=== PATIENT | male | born 1955 | race Caucasian/White ===

== ENCOUNTER 2018-10-13 12:58 | Observation (INO) ==
[2018-10-13] MEDS ORDERED: Sod Chloride 0.9% Inj 1,000 ML IV.CONT SCH (15:30)
--- NOTE | 2018-10-13 15:39 | ED ---
HPI General Chief Complaint: Syncope Stated Complaint: Dizziness/Nausea/Headache Time Seen by Provider: 10/13/18 15:11 Source: patient and family Mode of arrival: ambulatory Limitations: no limitations History of Present Illness HPI narrative: 3-year-old male complains of headache, nausea near syncope. Patient states that he had nausea and headache 4 days ago and had a syncopal episode at that time. Patient states that he passed out for a few seconds. The event was witnessed by his . Patient states that he has intermittent headaches since then. Patient states that headache is throbbing headache but spiritism area associate with nausea. Patient denies any visual change. Patient denies any photophobia. Patient denies any neck pain. Patient states that headache is worse since this afternoon and he almost passed out twice today. Patient denies any chest pain or shortness of breath. Patient denies abdominal pain. Patient denies any focal weakness or numbness of the extremity. Patient states that when he passed out 4 days ago he fell back and hit the back of the head. Patient did not see any physician after the fall. Patient has history of DVT and PE and atrial fibrillation. Patient is on Coumadin. Patient also on metoprolol. Patient states that he had ablation procedure in the past and it was in sinus rhythm subsequently. Patient states that he was seen by Dr. Vyas, his vessel ordinary seaman a few months ago and he was in sinus rhythm at that time. Patient denies any alcohol or drug abuse. Patient has history hypertension. 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 Patient awaiting surgery at [facility]. Patient also has history of neuropathy and right foot drop. complaint: Reports felt faint and almost passed out Onset (ago): hour(s) Prodromal symptoms: Reports headache and nausea/vomiting Witnessed: yes - by other (By his ) Context: Reports at rest Injuries sustained associated with event: Reports none Current symptoms: Reports headache and nausea Treatments prior to arrival: Reports none Related Data Home Medications Medication Instructions Recorded Confirmed metoprolol succinate 10/13/18 warfarin 10/13/18 Allergies Allergy/AdvReac Type Severity Reaction Status Date / Time No Known Allergies Allergy Uncoded 05/17/14 21:54 Review of Systems ROS: all other systems reviewed are negative [facility] Medical History Medical History A-fib (Acute) DVT (deep venous thrombosis) (Acute) Foot drop, left (Acute) HTN (hypertension) (Acute) Hernia of abdominal wall (Acute) Neuropathy (Acute) Pulmonary embolism (Acute) Sepsis (Acute) Surgical History Surgical History History of colectomy (Acute) History of reversal of ileostomy (Acute) Social History Social History Substance History: No History of Abuse Smoking Status: Never smoker How Often Do You Have a Drink Containing Alcohol: 2 to 4 times a month Recent Travel in [facility] within the Last 8 Weeks: No Recent Out of Country Travel within the Last 8 Weeks: No Immunization History Tetanus Immunization: <5 Years Exam Narrative Exam Narrative: GENERAL: Well-nourished, well-developed patient. SKIN: Focused skin assessment warm/dry. HEAD: Normocephalic. Right TM is clear. Left TM with history of left TM perforation. No discharge. No active bleeding. EYES: No scleral icterus. No injection or drainage. Pupils 1 mm equal reactive. NECK: Supple, trachea midline. No JVD or lymphadenopathy. No meningismus CARDIOVASCULAR: Regular rate and rhythm without murmurs, gallops, or rubs. RESPIRATORY: Breath sounds equal bilaterally. No accessory muscle use. GASTROINTESTINAL: Abdomen soft, non-tender, nondistended. MUSCULOSKELETAL: No cyanosis, or edema. BACK: Nontender without obvious deformity. No CVA tenderness. Neurologic exam: Patient is awake and alert oriented x3. Patient moves all extremity well. No obvious focal neurologic deficit. Course Initial Documented Vital Signs Temperature 99.0 F 10/13/18 13:33 Pulse Rate 63 10/13/18 13:33 Respiratory Rate 16 10/13/18 13:33 Blood Pressure 147/81 H 10/13/18 13:33 Pulse Oximetry 98 10/13/18 13:33 Last Documented Vital Signs Temperature 99.0 F 10/13/18 13:33 Pulse Rate 94 H 10/13/18 15:18 Respiratory Rate 12 10/13/18 15:18 Blood Pressure 140/87 10/13/18 15:18 Pulse Oximetry 97 10/13/18 15:30 Medical Decision Making MDM Narrative Medical decision making narrative: 63-year-old male with headache, nausea, near syncope. Patient had recurrent headache and nausea and syncopal episode 4 days ago. Patient has history of atrial fibrillation and on Coumadin. Normal saline solution 125 cc an hour. Patient was recently in sinus rhythm now in atrial fibrillation. Medical Screen Exam Complete: Yes Emergency Medical Condition: Yes Differential Diagnosis Differential Diagnosis: Differential diagnosis including vasovagal reaction, cephalgia, migraine headache, tension headache, cluster headache, intracranial pathology, arrhythmia, electrolyte imbalance, dehydration, seizure. Lab Data Lab results reviewed: Yes I reviewed the patient's lab results. Result diagrams: 10/13/18 15:43 10/13/18 15:43 Lab Results 10/13/18 10/13/18 10/13/18 Range/Units 15:43 15:43 15:43 WBC 8.7 (4.0-11.0) th/mm3 RBC 5.31 (4.50-5.90) mil/mm3 Hgb 16.9 (13.0-17.0) gm/dL Hct 49.9 (39.0-51.0) % MCV 94.1 (80.0-100.0) fL MCH 31.9 (27.0-34.0) pg MCHC 33.9 (32.0-36.0) % RDW 14.5 (11.6-17.2) % Plt Count 235 (150-450) th/mm3 MPV 9.2 (7.0-11.0) fL Neut % (Auto) 60.1 (16.0-70.0) % Lymph % (Auto) 29.0 (9.0-44.0) % Lane % (Auto) 8.1 H (0.0-8.0) % Eos % (Auto) 1.7 (0.0-4.0) % Baso % (Auto) 1.1 (0.0-2.0) % Neut # (Auto) 5.2 (1.8-7.7) th/mm3 Lymph # (Auto) 2.5 (1.0-4.8) th/mm3 Lane # (Auto) 0.7 (0.0-0.9) th/mm3 Eos # (Auto) 0.1 (0.0-0.4) th/mm3 Baso # (Auto) 0.1 (0.0-0.2) th/mm3 WBC Differential . Differential Comment Auto diff final PT 19.4 H (9.8-11.6) sec INR 1.9 Ratio APTT 41.2 H (23.4-31.7) sec Sodium 139 (136-145) meq/L Potassium 3.8 (3.5-5.1) meq/L Chloride 103 (98-107) meq/L Carbon Dioxide 28.4 (21.0-32.0) meq/L Anion Gap 8 (5-15) meq/L BUN 18 (7-18) mg/dL Creatinine 1.01 (0.60-1.30) mg/dL Estimated GFR 75 L (>89) mL/min Random Glucose 109 H (74-106) mg/dL Calcium 9.1 (8.5-10.1) mg/dL Total Bilirubin 0.4 (0.2-1.0) mg/dL AST 29 (15-37) U/L ALT 49 (12-78) U/L Alkaline Phosphatase 77 (45-117) U/L Troponin I Less than 0.02 L (0.02-0.05) ng/mL Total Protein 8.2 (6.4-8.2) g/dL Albumin 4.0 (3.4-5.0) g/dL Urine Color (Yellw/Straw) Urine Clarity (Clear) Urine pH (5.0-8.5) Ur Specific [place] (1.002-1.035) Urine Protein (Neg-Trace) mg/dL Urine Glucose (UA) (Negative) mg/dL Urine Ketones (Negative) mg/dL Urine Occult Blood (Negative) Urine Nitrate (Negative) Urine Bilirubin (Negative) Urine Urobilinogen (Less than 2) mg/dL Ur Leukocyte Esterase (Negative) Urine RBC (0-3) /hpf Urine WBC (0-5) /hpf Micro UA Comment Ur Microscopic Review Urine Culture Comments 10/13/18 10/13/18 Range/Units 15:43 16:00 WBC (4.0-11.0) th/mm3 RBC (4.50-5.90) mil/mm3 Hgb (13.0-17.0) gm/dL Hct (39.0-51.0) % MCV (80.0-100.0) fL MCH (27.0-34.0) pg MCHC (32.0-36.0) % RDW (11.6-17.2) % Plt Count (150-450) th/mm3 MPV (7.0-11.0) fL Neut % (Auto) (16.0-70.0) % Lymph % (Auto) (9.0-44.0) % Lane % (Auto) (0.0-8.0) % Eos % (Auto) (0.0-4.0) % Baso % (Auto) (0.0-2.0) % Neut # (Auto) (1.8-7.7) th/mm3 Lymph # (Auto) (1.0-4.8) th/mm3 Lane # (Auto) (0.0-0.9) th/mm3 Eos # (Auto) (0.0-0.4) th/mm3 Baso # (Auto) (0.0-0.2) th/mm3 WBC Differential Differential Comment PT (9.8-11.6) sec INR Ratio APTT (23.4-31.7) sec Sodium (136-145) meq/L Potassium (3.5-5.1) meq/L Chloride (98-107) meq/L Carbon Dioxide (21.0-32.0) meq/L Anion Gap (5-15) meq/L BUN (7-18) mg/dL Creatinine (0.60-1.30) mg/dL Estimated GFR (>89) mL/min Random Glucose (74-106) mg/dL Calcium (8.5-10.1) mg/dL Total Bilirubin (0.2-1.0) mg/dL AST (15-37) U/L ALT (12-78) U/L Alkaline Phosphatase (45-117) U/L Troponin I Cancelled (0.02-0.05) ng/mL Total Protein (6.4-8.2) g/dL Albumin (3.4-5.0) g/dL Urine Color Light-yellow (Yellw/Straw) Urine Clarity Clear (Clear) Urine pH 6.0 (5.0-8.5) Ur Specific [place] 1.008 (1.002-1.035) Urine Protein Negative (Neg-Trace) mg/dL Urine Glucose (UA) Negative (Negative) mg/dL Urine Ketones Negative (Negative) mg/dL Urine Occult Blood Small H (Negative) Urine Nitrate Negative (Negative) Urine Bilirubin Negative (Negative) Urine Urobilinogen Less than 2 (Less than 2) mg/dL Ur Leukocyte Esterase Negative (Negative) Urine RBC 2 (0-3) /hpf Urine WBC 2 (0-5) /hpf Micro UA Comment Culture not ind Ur Microscopic Review Not Reportable Urine Culture Comments Culture not ind Imaging Data Radiologist's impression: Chest X-Ray 10/13/18 15:26 CONCLUSION: 1. No acute cardiopulmonary disease. 2. Elevation of the right hemidiaphragm. Head CT 10/13/18 15:26 CONCLUSION: 1. No acute intracranial abnormality. 2. Opacified right mastoid air cells. The patient has a history of cholesteatoma. . Discharge Plan Discharge Disposition Patient Disposition: ED Admit(ED Internal Use Only) Discharge Details Diagnosis: Syncope, Atrial fibrillation, Cephalgia Physicians Team ED Provider: Sacha Rodriguez Primary Care Provider: Khadar Spears Rxs /Orders / Referrals /Forms Prescriptions: No Action metoprolol succinate RF: 0 warfarin RF: 0 Discharge Interventions Interventions: Vital Signs Last Done: 10/13/18 15:18 Status ED Status: With Doctor
--- NOTE | 2018-10-13 15:53 | CT ---
EXAM DATE: 10/13/2018 3:46 PM EST AGE/SEX: 63 years / Male INDICATIONS: Altered mental status. Near syncopal episode today and 5 days ago. Cephalgia. Dizziness . CLINICAL DATA: This is the patient's initial encounter. Patient reports that signs and symptoms have been present for 1 day and indicates a pain score of 6/10. MEDICAL/SURGICAL HISTORY: Cardiovascular disease. Deep venous thrombosis. Hypertension. None. RADIATION DOSE: 42.52 CTDI (mGy) COMPARISON: [facility], CT TEMPORAL BONE W/O CONTRAST, BILATERAL, 06/17/2016. [facility], CT BRAIN W/O CONTRAS T, 11/14/2012. . TECHNIQUE: CT of the head without contrast. Using automated exposure control and adjustment of the mA and/or kV according to patient size, radiation dose was kept as low as reasonably achievable to ob tain optimal diagnostic quality images. DICOM format image data is available electronically for revi ew and comparison. FINDINGS: Cerebrum: The ventricles are normal for age. No evidence of midline shift, mass lesion, hemorrhage or acute infarction. No extraaxial fluid collections are seen. Posterior Fossa: The cerebellum and brainstem are intact. The 4th ventricle is midline. The cerebe llopontine angle is unremarkable. Extracranial: The visualized portion of the orbits is intact. Opacified right mastoid air cells are noted. The patient has a history of cholesteatoma. Skull: The calvaria is intact. No evidence of skull fracture. CONCLUSION: 1. No acute intracranial abnormality. 2. Opacified right mastoid air cells. The patient has a history of cholesteatoma. . Electronically signed by: Bhanu Jacome MD Board Certified Radiologist 10/13/2018 3:51 PM EST
[2018-10-13 15:58] LABS: Baso # (Auto) 0.1 th/mm3 (0.0-0.2); Baso % (Auto) 1.1 % (0.0-2.0); Eos # (Auto) 0.1 th/mm3 (0.0-0.4); Eos % (Auto) 1.7 % (0.0-4.0); Hematocrit 49.9 % (39.0-51.0); Hemoglobin 16.9 gm/dL (13.0-17.0); Lymph # (Auto) 2.5 th/mm3 (1.0-4.8); Mean Corpuscular HGB Conc 33.9 % (32.0-36.0); Mean Corpuscular Hemoglobin 31.9 pg (27.0-34.0); Mean Corpuscular Volume 94.1 fL (80.0-100.0); Mean Platelet Volume 9.2 fL (7.0-11.0); Mono # (Auto) 0.7 th/mm3 (0.0-0.9); Mono % (Auto) 8.1 % (0.0-8.0); Neut # (Auto) 5.2 th/mm3 (1.8-7.7); Neut % (Auto) 60.1 % (16.0-70.0); Platelet Count 235 th/mm3 (150-450); Red Blood Count 5.31 mil/mm3 (4.50-5.90); Red Cell Distribution Width 14.5 % (11.6-17.2); White Blood Count 8.7 th/mm3 (4.0-11.0)
[2018-10-13 16:09] LABS: Bilirubin,Urine Negative (Negative); Clarity,Urine Clear (Clear); Glucose,Urine (UA) Negative (Negative); Leukocyte Esterase,Urine Negative (Negative); Nitrite,Urine Negative (Negative); Specific Gravity,Urine 1.008 (1.002-1.035)
[2018-10-13 16:11] LABS: Activated Partial Thrombo Time 41.2 sec (23.4-31.7); INR 1.9 Ratio; Prothrombin Time 19.4 sec (9.8-11.6)
[2018-10-13 16:14] LABS: Color,Urine Light-Yellow (Yellw/Straw)
--- NOTE | 2018-10-13 16:16 | XR ---
EXAM DATE: 10/13/2018 4:12 PM EST AGE/SEX: 63 years / Male INDICATIONS: Altered mental status. Near syncopal episode today and 5 days ago. Cephalgia. Dizziness . CLINICAL DATA: This is the patient's initial encounter. Patient reports that signs and symptoms have been present for 3 days and indicates a pain score of 0/10. MEDICAL/SURGICAL HISTORY: . Cardiovascular disease. Deep venous thrombosis. Hypertension. None . [place] [facility] [place]. . FINDINGS: A single AP view of the chest demonstrates the lungs to be symmetrically aerated without evidence of mass, infiltrate or effusion. The cardiomediastinal contours are unremarkable. Osseous structures a re intact. There is elevation of the right hemidiaphragm. CONCLUSION: 1. No acute cardiopulmonary disease. 2. Elevation of the right hemidiaphragm. Electronically signed by: Bhanu Jacome MD Board Certified Radiologist 10/13/2018 4:14 PM EST
[2018-10-13 16:19] LABS: Alkaline Phosphatase 77 U/L (45-117); Total Protein 8.2 g/dL (6.4-8.2)
[2018-10-13 16:24] LABS: Alanine Aminotransferase 49 U/L (12-78); Anion Gap 8 meq/L (5-15); Aspartate Aminotransferase 29 U/L (15-37); Blood Urea Nitrogen 18 mg/dL (7-18); Calcium 9.1 mg/dL (8.5-10.1); Carbon Dioxide 28.4 meq/L (21.0-32.0); Chloride 103 meq/L (98-107); Glomerular Filtration Rate 75 mL/min (>89); Glucose,Random 109 mg/dL (74-106); Potassium 3.8 meq/L (3.5-5.1); Sodium 139 meq/L (136-145)
[2018-10-13] MEDS ORDERED: Warfarin Consult Pharmacy OTHER PRN (20:28)
--- NOTE | 2018-10-13 20:38 | P.HP ---
History of Present Illness Service: [facility] Primary Care Physician: Khadar Spears MD History of Present Illness: 63-year-old male with a past medical history significant for atrial fibrillation anticoagulated on Coumadin, hypertension, neuropathy and history of DVT/PE presents to the emergency department for the evaluation of multiple syncopal episodes. The first event occurred on Friday while the patient was shopping. He was outlined in the parking lot when he began to feel dizzy and developed a horrible. He reports he lost consciousness and hit his head on the ground. He denies any associated headache after the fall until today when it returned. He reports dizziness and lightheadedness upon standing. He denies any chest pain or shortness of breath. No abdominal pain. No nausea/vomiting/ diarrhea. No fever/chills. No focal neurologic deficits. The patient denies any history of anything other occurring previously. Inpatient Certification: I certify that the inpatient services were ordered in accordance with Medicare regulations governing the order. This includes certification that hospital inpatient services are reasonable and necessary and in the case of services not specified as inpatient-only under 42 CFR 419.22(n), that they are appropriately provided as inpatient services in accordance to with the 2-midnight benchmark under 43 CFR 412.3(e) Review of Systems All other systems reviewed negative except as stated in HPI PMFSH - History History Provided By: Patient, Family Member - Medical History Medical History: Medical History (Last Reviewed 10/13/18 @ 20:31 by Kady Manzano MD) A-fib DVT (deep venous thrombosis) Foot drop, left HTN (hypertension) Hernia of abdominal wall Neuropathy Pulmonary embolism Sepsis - Surgical History Surgical History: Surgical History (Last Reviewed 10/13/18 @ 20:32 by Kady Manzano MD) History of colectomy History of reversal of ileostomy - Family History Family History: Family History (Last Updated 10/13/18 @ 20:32 by Kady Manzano MD) Other Coronary artery disease - Social History I have reviewed the patient's Social History: Yes - Tobacco History Smoking Status: Never smoker - Alcohol History How Often Do You Have a Drink Containing Alcohol: 2 to 4 times a month - Substance Use History Substance History: No History of Abuse - Travel History Recent Travel in the [place] Within the Last 8 Weeks: No Recent Travel Out of the Country Within the Last 8 Weeks: No - Immunization History Tetanus Immunization: <5 Years Medications and Allergies Active Medications: Active Medications Sodium Chloride (Ns Inj) 1,000 mls @ 125 mls/hr IV.CONT .Q8H [id number] Stop: 10/13/18 23:29 Last Admin: 10/13/18 16:16 Dose: 125 mls/hr Pharmacy Profile Note (Coumadin Consult Pharmacy) 1 each OTHER UNSCH PRN PRN Reason: PHARMACY DOCUMENTATION Allergies Allergy/AdvReac Type Severity Reaction Status Date / Time No Known Allergies Allergy Uncoded 05/17/14 21:54 Home Medications Medication Instructions Recorded Confirmed Type metoprolol succinate 10/13/18 History warfarin 10/13/18 History Exam Vital signs: Vital Signs 10/13/18 13:33 10/13/18 15:18 10/13/18 15:30 Temperature 99.0 F Pulse Rate 63 94 H Respiratory Rate 16 12 Blood Pressure 147/81 H 140/87 Pulse Oximetry 98 98 97 10/13/18 19:58 Temperature Pulse Rate 62 Respiratory Rate 17 Blood Pressure 158/80 H Pulse Oximetry 96 Intake & Output 10/13/18 10/13/18 10/14/18 06:59 18:59 06:59 Weight 127.006 kg Narrative: Gen.: No acute distress Head: Normocephalic. Atraumatic. EENT: Pupils equal round and reactive to light. Nose without drainage. Airway intact. Throat without injection. Cardiovascular: Regular rate and rhythm. No murmurs, rubs or gallops. Respiratory: Lungs clear to auscultation bilaterally. No wheezes or rhonchi. Abdomen: Soft, nontender, nondistended. No peritoneal signs. Musculoskeletal: No gross deformities. No edema. Skin: No obvious rashes or erythema. Neuro: Sensory and motor grossly intact. Cranial nerves II through XII grossly intact. Results - Labs CBC & Chem 7: 10/13/18 15:43 10/13/18 15:43 Labs: Laboratory Results - last 24 hr 10/13/18 10/13/18 10/13/18 15:43 15:43 15:43 WBC 8.7 RBC 5.31 Hgb 16.9 Hct 49.9 MCV 94.1 MCH 31.9 MCHC 33.9 RDW 14.5 Plt Count 235 MPV 9.2 Neut % (Auto) 60.1 Lymph % (Auto) 29.0 [place] % (Auto) 8.1 H Eos % (Auto) 1.7 Baso % (Auto) 1.1 Neut # (Auto) 5.2 Lymph # (Auto) 2.5 [place] # (Auto) 0.7 Eos # (Auto) 0.1 Baso # (Auto) 0.1 WBC Differential . Differential Comment Auto diff final PT 19.4 H INR 1.9 APTT 41.2 H Sodium 139 Potassium 3.8 Chloride 103 Carbon Dioxide 28.4 Anion Gap 8 BUN 18 Creatinine 1.01 Estimated GFR 75 L Random Glucose 109 H Calcium 9.1 Total Bilirubin 0.4 AST 29 ALT 49 Alkaline Phosphatase 77 Troponin I Less than 0.02 L Total Protein 8.2 Albumin 4.0 Urine Color Urine Clarity Urine pH Ur Specific [place] Urine Protein Urine Glucose (UA) Urine Ketones Urine Occult Blood Urine Nitrate Urine Bilirubin Urine Urobilinogen Ur Leukocyte Esterase Urine RBC Urine WBC Micro UA Comment Ur Microscopic Review Urine Culture Comments 10/13/18 10/13/18 15:43 16:00 WBC RBC Hgb Hct MCV MCH MCHC RDW Plt Count MPV Neut % (Auto) Lymph % (Auto) [place] % (Auto) Eos % (Auto) Baso % (Auto) Neut # (Auto) Lymph # (Auto) [place] # (Auto) Eos # (Auto) Baso # (Auto) WBC Differential Differential Comment PT INR APTT Sodium Potassium Chloride Carbon Dioxide Anion Gap BUN Creatinine Estimated GFR Random Glucose Calcium Total Bilirubin AST ALT Alkaline Phosphatase Troponin I Cancelled Total Protein Albumin Urine Color Light-yellow Urine Clarity Clear Urine pH 6.0 Ur Specific [place] 1.008 Urine Protein Negative Urine Glucose (UA) Negative Urine Ketones Negative Urine Occult Blood Small H Urine Nitrate Negative Urine Bilirubin Negative Urine Urobilinogen Less than 2 Ur Leukocyte Esterase Negative Urine RBC 2 Urine WBC 2 Micro UA Comment Culture not ind Ur Microscopic Review Not Reportable Urine Culture Comments Culture not ind - Imaging Impressions Chest X-Ray 10/13/18 15:26 CONCLUSION: 1. No acute cardiopulmonary disease. 2. Elevation of the right hemidiaphragm. Head CT 10/13/18 15:26 CONCLUSION: 1. No acute intracranial abnormality. 2. Opacified right mastoid air cells. The patient has a history of cholesteatoma. . Caprini VTE Risk Assessment Caprini VTE Risk Assessment: Moderate/High Risk (score >= 2) Caprini Risk Assessment Model: Point Value = 1 Point Value = 2 Point Value = 3 Point Value = 5 Age 41-60 Minor surgery BMI > 25 kg/m2 Swollen legs Varicose veins or History of unexplained or recurrent spontaneous Oral contraceptives or hormone replacement Sepsis (< 1 month) Serious lung disease, including pneumonia (< 1 month) Abnormal pulmonary function Acute myocardial infarction Congestive heart failure (< 1 month) History of inflammatory bowel disease Medical patient at bed rest Age 61-74 Arthroscopic surgery Major open surgery (> 45 min) Laparoscopic surgery (> 45 min) Malignancy Confined to bed (> 72 hours) Immobilizing plaster cast Central venous access Age >= 75 History of VTE Family history of VTE Factor V Leiden Prothrombin [id number] Lupus anticoagulant Anticardiolipin antibodies Elevated serum homocysteine Heparin-induced thrombocytopenia Other congenital or acquired thrombophilia Stroke (< 1 month) Elective arthroplasty Hip, pelvis, or leg fracture Acute spinal cord injury (< 1 month) Prophylaxis Regimen: Total Risk Factor Score Risk Level Prophylaxis Regimen 0-1 Low Early ambulation 2 Moderate Order ONE of the following: *Sequential Compression Device (SCD) *Heparin 5000 units SQ BID 3-4 Higher Order ONE of the following medications: *Heparin 5000 units SQ TID *Enoxaparin/Lovenox 40 mg SQ daily (WT < 150 kg, CrCl > 30 mL/min) *Enoxaparin/Lovenox 30 mg SQ daily (WT < 150 kg, CrCl > 10-29 mL/min) *Enoxaparin/Lovenox 30 mg SQ BID (WT < 150 kg, CrCl > 30 mL/min) AND/OR *Sequential Compression Device (SCD) 5 or more Highest Order ONE of the following medications: *Heparin 5000 units SQ TID (Preferred with Epidurals) *Enoxaparin/Lovenox 40 mg SQ daily (WT < 150 kg, CrCl > 30 mL/min) *Enoxaparin/Lovenox 30 mg SQ daily (WT < 150 kg, CrCl > 10-29 mL/min) *Enoxaparin/Lovenox 30 mg SQ BID (WT < 150 kg, CrCl > 30 mL/min) AND *Sequential Compression Device (SCD) Assessment and Plan - Plan Assessment/plan: 1. Syncope Patient with syncopal episode on Friday and multiple presyncopal episodes with worse with standing History of atrial fibrillation while previously hospitalized and treated for sepsis, per patient and his he landed normal sinus rhythm EKG shows atrial fibrillation Patient anticoagulated on Coumadin Patient does not know his Coumadin dose, pharmacy consulted to assist with dosing, INR 1.9 Carotid ultrasound/echo pending CT head negative for acute intracranial abnormality 2. Atrial fibrillation Patient had previous atrial fibrillation diagnosis Already anticoagulated on Coumadin Continue metoprolol once dosing determined Consulted patient's social services director, Dr. Vyas, appreciate assistance 3. History of DVT/PE Coumadin as above 4. Hypertension Continue metoprolol once reconciled 5. Neuropathy Continue gabapentin FEN Heart healthy diet Electrolytes: Monitor and replete as needed Coumadin
[2018-10-14 07:34] LABS: Calcium 8.5 mg/dL (8.5-10.1); Carbon Dioxide 24.7 meq/L (21.0-32.0); Potassium 3.7 meq/L (3.5-5.1)
--- NOTE | 2018-10-14 08:52 | MB ---
cc: Nic Vyas MD DATE: 10/14/2018 REASON FOR CONSULTATION: Syncope, atrial fibrillation. HISTORY OF PRESENT ILLNESS: The patient is a 63-year-old white male with a history of sleep apnea, paroxysmal atrial fibrillation, peripheral neuropathy, hypertension, deep venous thrombosis approximately 2011, who presented to the hospital with recurrent syncope. About 6 days ago, he was in the parking lot at [employer] when while walking to the other side of his vehicle he experienced moderate to severe lightheadedness, subsequently losing consciousness for a few seconds. At the time, he felt nauseated and had a fairly severe diffuse headache as well. He did not seek medical assistance at that time. His headaches persisted over the next couple days; and while walking out the door at [employer], he once again developed moderate lightheadedness, worsening to the point of losing consciousness again for a few seconds. Once again, his headache was fairly severe at that time associated with nausea. Each time he has regained consciousness, he is slightly disoriented for a few minutes. There has been no seizure activity, bowel or urinary incontinence, speech disturbances. The patient denies angina, shortness of breath, pedal edema, palpitations, paroxysmal nocturnal dyspnea, fevers. PAST MEDICAL HISTORY: 1. History of deep venous thrombosis, possibly 2011. 2. Hyperlipidemia. 3. Sleep apnea. 4. Paroxysmal atrial fibrillation diagnosed 09/2012. 5. Peripheral neuropathy. 6. Syncopal episode 10/06/2017, while in the bathroom, felt at that time due to dehydration. 7. Hypertension. PAST SURGICAL HISTORY: 1. Right hemicolectomy for a serrated hyperplastic polyp at the hepatic flexure with subsequent ileostomy and ileostomy takedown. 2. History of basal cell cancer excision. CARDIAC MEDICATIONS AT HOME: Warfarin 10 mg daily, metoprolol succinate 25 mg b.i.d., amlodipine 5 mg daily. ALLERGIES: NO KNOWN DRUG ALLERGIES. FAMILY HISTORY: Noncontributory. SOCIAL HISTORY: The patient denies any history of alcohol or tobacco abuse. REVIEW OF SYSTEMS: As in the history of present illness, otherwise negative or noncontributory. He also denies unilateral weakness or numbness, melena, diarrhea, bright red blood per rectum. PHYSICAL EXAMINATION: VITAL SIGNS: His blood pressure 139/72 with a pulse of 62, respirations 20. GENERAL: He is a well-developed, well-nourished, white male in no acute distress. NECK: Jugular venous pressure is normal. Carotid pulses are 2+ bilaterally and without bruits. LUNGS: Reveals clear lungs aguilar. CARDIAC: He has a regular rhythm and rate without S3, S4, or murmur. ABDOMEN: He has a soft, obese, nontender abdomen. Bowel sounds are present. There is no definite hepatosplenomegaly. EXTREMITIES: Reveals no clubbing, cyanosis, or edema. DIAGNOSTIC DATA: EKG shows atrial fibrillation, incomplete right bundle branch block, left anterior fascicular block. Chest x-ray shows no acute disease. Laboratory data includes normal CBC and normal basic metabolic profile, except for glucose 142. Troponin less than 0.02. IMPRESSION: Recurrent syncopal episodes in this 63-year-old white male with a history of deep venous thrombosis, hyperlipidemia, sleep apnea, paroxysmal atrial fibrillation, hypertension. Of note, he was also found to be in atrial fibrillation on presentation. At this time, he is back in sinus rhythm. Overall, I doubt the atrial fibrillation is the direct cause of his loss of consciousness. He has had recurrences of atrial fibrillation in the past without any symptoms whatsoever. The etiology of his syncopal episodes is not entirely clear. They may have been vasovagal mediated, possibly precipitated by his fairly severe headaches recently. RECOMMENDATIONS: 1. Continue to monitor for another 24 hours. 2. Should monitoring here in the hospital be uneventful, we will set the patient up for a 3-week monitor soon after discharge. If he continues to have unexplained syncope beyond the outpatient monitoring period, will recommend an implantable loop recorder. MD TREVIN Cabrera/mary , 08:22 AM , 08:33 AM LUIS
[2018-10-14] MEDS: amLODIPine 5 MG Tablet PO SCH (09:14)
--- NOTE | 2018-10-14 09:17 | US ---
EXAM DATE: 10/14/2018 9:15 AM EST AGE/SEX: 63 years / Male INDICATIONS: Syncope. CLINICAL DATA: This is the patient's initial encounter. Patient reports that signs and symptoms have been present for 1 day and indicates a pain score of 0/10. MEDICAL/SURGICAL HISTORY: Deep venous thrombosis. Hypertension. A-FIB. Hernia of Abdominal wal l. Neuropathy. Pulmonary embolism. Sepsis. . Colectomy. History of reversal of ileostomy. COMPARISON: . VELOCITY PARAMETERS: ICA/CCA Ratio: Right 1.06 , Left 0.77 ICA: Right 118 cm/sec, Left 96 cm/sec CCA: Right 111 cm/sec, Left 124 cm/sec ECA: Right 148 cm/sec, Left 142 cm/sec Vertebral: Right 71 cm/sec antegrade, Left 51 cm/sec antegrade FINDINGS: Right Carotid: Mild arteriosclerotic plaque is visualized.The waveforms are within normal limits. Left Carotid: Mild arteriosclerotic plaque is visualized. The waveforms are within normal limits. Other: None. CONCLUSION: Negative for hemodynamically significant stenosis. Electronically signed by: Giancarlo Boone MD Board Certified Radiologist 10/14/2018 9:15 AM EST
[2018-10-14 12:39] LABS: Baso # (Auto) 0.1 th/mm3 (0.0-0.2); Baso % (Auto) 0.7 % (0.0-2.0); Eos # (Auto) 0.1 th/mm3 (0.0-0.4); Eos % (Auto) 1.8 % (0.0-4.0); Hematocrit 45.3 % (39.0-51.0); Hemoglobin 15.6 gm/dL (13.0-17.0); Lymph % (Auto) 26.8 % (9.0-44.0); Mean Corpuscular HGB Conc 34.5 % (32.0-36.0); Mean Corpuscular Hemoglobin 31.9 pg (27.0-34.0); Mean Corpuscular Volume 92.3 fL (80.0-100.0); Mean Platelet Volume 9.4 fL (7.0-11.0); Mono # (Auto) 0.7 th/mm3 (0.0-0.9); Mono % (Auto) 9.8 % (0.0-8.0); Neut # (Auto) 4.5 th/mm3 (1.8-7.7); Neut % (Auto) 60.9 % (16.0-70.0); Platelet Count 229 th/mm3 (150-450); Red Blood Count 4.91 mil/mm3 (4.50-5.90); Red Cell Distribution Width 14.5 % (11.6-17.2); White Blood Count 7.4 th/mm3 (4.0-11.0)
[2018-10-14 12:50] LABS: INR 1.7 Ratio; Prothrombin Time 16.7 sec (9.8-11.6)
--- NOTE | 2018-10-14 15:13 | P.PNIM ---
Subjective Interval history: 63-year-old gentleman who was admitted with syncopal episode and ongoing frontal headaches Patient seen and examined, doing better, denies chest pain, denies shortness of breath, denies palpitations, still having moderate headache frontal 6 out of 10 , reports that he recently had an MRI and is scheduled to undergo ENT procedure for inner ear lesion, (? Cholesteatoma) Physical Exam Vital signs: Last Vital Signs Temp 98.2 F 10/14/18 04:00 Pulse 61 10/14/18 08:00 Resp 20 10/14/18 04:00 BP 139/72 10/14/18 04:00 Pulse Ox 96 10/14/18 04:00 Intake & Output 10/12/18 10/13/18 10/14/18 10/15/18 06:59 06:59 06:59 06:59 Intake Total 1000 / 1000 Balance 1000 / 1000 Weight 127.006 kg Well-developed well-nourished obese 63-year-old gentleman on CPAP machine Awake alert oriented no acute distress pleasant Heart S1-S2 regular heart sounds distant Lungs clear bilateral no wheeze no rhonchi Abdomen obese soft nontender positive bowel sounds Extremities no edema no calf tenderness Results Labs CBC & Chem 7: 10/14/18 11:33 10/14/18 05:17 Imaging Imaging: Impressions Chest X-Ray 10/13/18 15:26 CONCLUSION: 1. No acute cardiopulmonary disease. 2. Elevation of the right hemidiaphragm. Head CT 10/13/18 15:26 CONCLUSION: 1. No acute intracranial abnormality. 2. Opacified right mastoid air cells. The patient has a history of cholesteatoma. . Carotid Doppler Study 10/14/18 00:00 CONCLUSION: Negative for hemodynamically significant stenosis. Assessment and Plan Plan SYNCOPE uncertain etiology, tele, cardio eval appreciated, echo pending, neurochecks AFIB hx on coumadin, cont tele monitoring and outpt holter DVT/PE hx on coumadin HTN controlled PERIPHERAL NEUROPATHY HEADACHE w inner ear ?cholesteatoma/mastoiditis - being followed by ENT, possible vasovagal /neurocardiogenic syncope from [place] pain? and dizziness due to inner ear dysfunction, will try to get mri brain report ROME on cpap as at home OBESITY bmi 38 outpt diet activity when stable dvt prophylaxis - coumadin dispo - home when stable per cardiology hopefully tomorrow Progress Note: Quality VTE Deep Vein Thrombosis/Pulmonary Embolism Present on Admission: No
--- NOTE | 2018-10-14 16:28 | ECG ---
Date Performed: 10/13/2018 Time Performed: 13:42:35 PTAGE: 63 years EKG: ATRIAL FIBRILLATION INCOMPLETE RIGHT BUNDLE BRANCH BLOCK LEFT ANTERIOR FASCICULAR BLOCK Com pared to previous tracing, patient is now in atrial fibrillation. Previous showed Sinus rhythm ABNORMAL ECG PREVIOUS TRACING : 05/17/2014 22.43 DOCTOR: Mitchell Ribeiro Interpretating Date/Time 10/14/2018 16:25:55
[2018-10-14] MEDS ORDERED: Acetaminophen 325 MG Tablet PO PRN (17:26)
--- NOTE | 2018-10-14 17:50 | ECHRPT ---
Indication: Syncope CONCLUSIONS The left ventricular systolic function is low normal with an estimated ejection fraction in the rang e of 50- 55%. Trace mitral valve regurgitation. There is trace tricuspid valve regurgitation. Trivial pulmonary valve regurgitation. BP: / HR: Rhythm: MEASUREMENTS (Male / Female) Normal Values Technical Quality:Fair 2D ECHO LV Diastolic Diameter PLAX 5.0 cm 4.2 - 5.9 / 3.9 - 5.3 cm LV Systolic Diameter PLAX 3.5 cm IVS Diastolic Thickness 1.1 cm 0.6 - 1.0 / 0.6 - 0.9 cm LVPW Diastolic Thickness 1.1 cm 0.6 - 1.0 / 0.6 - 0.9 cm LV Relative Wall Thickness 0.4 RV Internal Dim ED PLAX 3.4 cm LVOT Diameter 1.8 cm Aortic Root Diameter 3.4 cm LA Systolic Diameter LX 3.6 cm 3.0 - 4.0 / 2.7 - 3.8 cm DOPPLER AV Peak Velocity 149.0 cm/s AV Peak Gradient 8.9 mmHg LVOT Peak Velocity 114.0 cm/s LVOT Peak Gradient 5.2 mmHg AV Area Cont Eq pk 1.9 cm Mitral E Point Velocity 80.9 cm/s Mitral A Point Velocity 44.9 cm/s Mitral E to A Ratio 1.8 LV E' Lateral Velocity 12.9 cm/s Mitral E to LV E' Lateral Ratio 6.3 LV E' Septal Velocity 9.3 cm/s Mitral E to LV E' Septal Ratio 8.7 TR Peak Velocity 231.0 cm/s TR Peak Gradient 21.3 mmHg Right Atrial Pressure 10.0 mmHg Pulmonary Artery Systolic Pressu 31.3 mmHg Right Ventricular Systolic Press 31.3 mmHg PV Peak Velocity 114.0 cm/s PV Peak Gradient 5.2 mmHg FINDINGS LEFT VENTRICLE Normal left ventricular size. Wall thickness is measured at the upper limits of normal. The left ventricular systolic function is low normal with an estimated ejection fraction in the rang e of 50- 55%. RIGHT VENTRICLE Grossly normal LEFT ATRIUM The left atrial size is normal. RIGHT ATRIUM The right atrial size is normal. ATRIAL SEPTUM Normal atrial septal thickness without atrial level shunting by limited color doppler interrogation. AORTA The aortic root and proximal ascending aorta are normal in size on limited imaging. MITRAL VALVE Structurally normal mitral valve. No mitral valve stenosis. Trace mitral valve regurgitation. AORTIC VALVE Trileaflet aortic valve. No aortic valve stenosis or regurgitation. TRICUSPID VALVE Grossly normal There is trace tricuspid valve regurgitation. The estimated pulmonary arterial pressure is 31 mmHg. PULMONARY VALVE The pulmonary valve is not well visualized. Trivial pulmonary valve regurgitation. VESSELS The inferior vena cava is normal in size. PERICARDIUM No pericardial effusion. Adam Chavarria DO (Electronically Signed) Final Date:14 October 2018 17:49
[2018-10-14] MEDS: Loratadine 10 MG Tablet PO SCH (18:12)
[2018-10-15 04:12] VITALS: TEMP 98.6
[2018-10-15 07:34] LABS: INR 1.9 Ratio; Prothrombin Time 19.4 sec (9.8-11.6)
[2018-10-15 07:40] VITALS: BP 145/74; PULSE 50; RESP 16; O2SAT 97
[2018-10-15] MEDS: amLODIPine 5 MG Tablet PO SCH (08:12)
[2018-10-15] MEDS: Loratadine 10 MG Tablet PO SCH (08:12)
--- NOTE | 2018-10-15 08:50 | P.PNCA ---
Subjective Interval history: Denies recurrent syncope. Denies CP, palpitations, dizziness, dyspnea. Medications and Allergies Active Medications: Active Medications Acetaminophen (Tylenol) 650 mg PO Q4H PRN PRN Reason: TEMP>101F, PAIN 1-5, HEADACHE Hydrocodone Bitart/Acetaminophen ([place] 5/325) 1 tab PO Q6H PRN PRN Reason: PAIN SCALE 6 TO 10 Amlodipine Besylate (Norvasc) 5 mg PO DAILY [facility] Last Admin: 10/15/18 08:12 Dose: 5 mg Loratadine (Claritin) 10 mg PO DAILY [facility] Last Admin: 10/15/18 08:12 Dose: 10 mg Metoprolol Succinate (Toprol Xl) 50 mg PO DAILY [facility] Last Admin: 10/15/18 08:12 Dose: 50 mg Pharmacy Profile Note (Coumadin Consult Pharmacy) 1 each OTHER UNSCH PRN PRN Reason: PHARMACY DOCUMENTATION Warfarin Sodium (Coumadin) 10 mg PO DAILY@1600 [facility] Last Admin: 10/14/18 16:27 Dose: 10 mg Allergies Allergy/AdvReac Type Severity Reaction Status Date / Time No Known Allergies Allergy Uncoded 05/17/14 21:54 Home Medications Medication Instructions Recorded Confirmed Type amlodipine 5 mg PO DAILY 10/13/18 10/13/18 History cholecalciferol (vitamin D3) 10/13/18 History [Vitamin D3] magnesium oxide 400 mg PO BID 10/13/18 10/13/18 History metoprolol succinate 25 mg PO BID 10/13/18 10/13/18 History omega 2-xlb-ccl-fish oil [Fish Oil] 10/13/18 History vitamin J82-[id number] acid 10/13/18 History warfarin [Coumadin] 10 mg PO DAILY 10/13/18 10/13/18 History Physical Exam Vital signs: Vital Signs 10/14/18 16:00 10/14/18 20:00 10/14/18 23:23 Temperature 98.1 F 98.3 F 98.1 F Pulse Rate 54 L 52 L 56 L Respiratory Rate 18 20 20 Blood Pressure 131/64 115/64 140/99 H Pulse Oximetry 97 95 97 10/15/18 04:00 10/15/18 07:33 Temperature 98.6 F Pulse Rate 55 L 50 L Respiratory Rate 17 16 Blood Pressure 118/60 145/74 H Pulse Oximetry 96 97 Intake & Output 10/14/18 10/15/18 10/15/18 18:59 06:59 18:59 Other: Date of Last Bowel Movement 10/13/18 - Constitutional no acute distress - Routine Neck Exam Absent: JVD - Routine Respiratory Exam Present: CTA bilaterally - Routine Cardiovascular Exam Present: RRR, S1, S2. Absent: murmur, gallop - Routine Abdominal Exam Present: soft, normoactive bowel sounds. Absent: tenderness, organomegaly - Routine Extremities Exam Absent: cyanosis, clubbing, edema Results 10/14/18 11:33 10/14/18 05:17 Cardiac Enzymes 10/13/18 10/13/18 Range/Units 15:43 15:43 AST 29 (15-37) U/L Troponin I Less than 0.02 L Cancelled (0.02-0.05) ng/mL Coagulation 10/13/18 10/14/18 10/15/18 Range/Units 15:43 11:33 07:00 PT 19.4 H 16.7 H 19.4 H (9.8-11.6) sec APTT 41.2 H (23.4-31.7) sec CBC 10/13/18 10/14/18 Range/Units 15:43 11:33 WBC 8.7 7.4 (4.0-11.0) th/mm3 RBC 5.31 4.91 (4.50-5.90) mil/mm3 Hgb 16.9 15.6 (13.0-17.0) gm/dL Hct 49.9 45.3 (39.0-51.0) % Plt Count 235 229 (150-450) th/mm3 Neut # (Auto) 5.2 4.5 (1.8-7.7) th/mm3 Lymph # (Auto) 2.5 2.0 (1.0-4.8) th/mm3 [place] # (Auto) 0.7 0.7 (0.0-0.9) th/mm3 Eos # (Auto) 0.1 0.1 (0.0-0.4) th/mm3 Baso # (Auto) 0.1 0.1 (0.0-0.2) th/mm3 Comprehensive Metabolic Panel 10/13/18 10/14/18 Range/Units 15:43 05:17 Sodium 139 139 (136-145) meq/L Potassium 3.8 3.7 (3.5-5.1) meq/L Chloride 103 106 (98-107) meq/L Carbon Dioxide 28.4 24.7 (21.0-32.0) meq/L BUN 18 16 (7-18) mg/dL Creatinine 1.01 1.09 (0.60-1.30) mg/dL Calcium 9.1 8.5 (8.5-10.1) mg/dL AST 29 (15-37) U/L ALT 49 (12-78) U/L Alkaline Phosphatase 77 (45-117) U/L Total Protein 8.2 (6.4-8.2) g/dL Albumin 4.0 (3.4-5.0) g/dL Intake and Output 10/14/18 10/15/18 10/15/18 22:59 06:59 14:59 Other: Date of Last Bowel Movement 10/13/18 - Imaging and Cardiology Imaging: Impressions Chest X-Ray 10/13/18 15:26 CONCLUSION: 1. No acute cardiopulmonary disease. 2. Elevation of the right hemidiaphragm. Head CT 10/13/18 15:26 CONCLUSION: 1. No acute intracranial abnormality. 2. Opacified right mastoid air cells. The patient has a history of cholesteatoma. . Carotid Doppler Study 10/14/18 00:00 CONCLUSION: Negative for hemodynamically significant stenosis. Assessment and Plan - Assessment (1) Syncope Code(s): R55 - Syncope and collapse Status: Acute Plan: Stable overnight. Monitoring uneventful. No further syncope. Suspect the episodes were vasovagal-mediated. Recommend discharge today; will set him up for 3 week monitor lashae. (2) Paroxysmal atrial fibrillation Code(s): I48.0 - Paroxysmal atrial fibrillation Status: Chronic Plan: Remains in sinus rhythm since admission. Patient asymptomatic with atrial fib recurrences in the past. Recommend continue metoprolol and warfarin. (3) Hypertension Code(s): I10 - Essential (primary) hypertension Status: Chronic Plan: Fluctuating BP's. Recommend outpatient monitoring and medication adjustment by his PCP. - Plan Code Status: full Discussed Condition With: patient (1) Syncope Qualifiers: Syncope type: unspecified (3) Hypertension Qualifiers: Hypertension type: essential hypertension Qualified Code(s): I10 - Essential (primary) hypertension
--- NOTE | 2018-10-15 09:53 | P.DS ---
DS: Providers Date of admission: 10/13/18 20:26 Primary care physician: Khadar Spears MD Consults: 10/13/18 20:09 HUB Only Consult Order Routine Consulting Provider: Antonino Muñiz 10/13/18 20:26 Consult to Cardiology Routine Consulting Provider: Nic Vyas Does the patient have a Director Of Philanthropy who follows them?: Yes Preferred Commercial Counsel:: Nic Vyas Reason for Consultation: a fib, syncope Notified:: Service Spoke with:: Diana Date Notified:: 10/13/18 Time Notified:: 22:00 Ordering Provider: CASS Brief History from admission: 63-year-old male with a past medical history significant for atrial fibrillation anticoagulated on Coumadin, hypertension, neuropathy and history of DVT/PE presents to the emergency department for the evaluation of multiple syncopal episodes. The first event occurred on Friday while the patient was shopping. He was outlined in the parking lot when he began to feel dizzy and developed a horrible. He reports he lost consciousness and hit his head on the ground. He denies any associated headache after the fall until today when it returned. He reports dizziness and lightheadedness upon standing. He denies any chest pain or shortness of breath. No abdominal pain. No nausea/vomiting/ diarrhea. No fever/chills. No focal neurologic deficits. The patient denies any history of anything other occurring previously. DS: Diagnosis Discharge Diagnosis (1) Syncope: Status: Acute (2) Paroxysmal atrial fibrillation: Status: Chronic (3) Hypertension: Status: Chronic DS: Summary Patient was seen by cardiology who felt his episode was likely vasovagal mediated and that patient had remained in nsr during admission so stable for discharge home for outpatient followup and holter monitoring as outpatient. Patient was having oseguera likely related to sinus and inner ear lesion, for which he is being followed by ENT He is instructed on followup, diet, medication and activity on dc Discharge diagnosis: SYNCOPE VASOVAGAL PAROXYSMAL AFIB DVT/PE hx PERIPHERAL NEUROPATHY HTN OSEGUERA w inner ear cholesteatoma? ENT fu ROME on CPAP OBESITY bmi 38 Time Spent with Patient Total time spent providing and/or coordinating discharge services: Quality: VTE Deep Vein Thrombosis/Pulmonary Embolism Present on Admission: No Results Labs on day of discharge: Labs from last 24 hours 10/15/18 10/14/18 10/14/18 07:00 11:33 11:33 WBC 7.4 RBC 4.91 Hgb 15.6 Hct 45.3 MCV 92.3 MCH 31.9 MCHC 34.5 RDW 14.5 Plt Count 229 MPV 9.4 Neut % (Auto) 60.9 Lymph % (Auto) 26.8 [place] % (Auto) 9.8 H Eos % (Auto) 1.8 Baso % (Auto) 0.7 Neut # (Auto) 4.5 Lymph # (Auto) 2.0 [place] # (Auto) 0.7 Eos # (Auto) 0.1 Baso # (Auto) 0.1 WBC Differential . Differential Comment Auto diff final PT 19.4 H 16.7 H INR 1.9 1.7 Impressions ITS Impressions Chest X-Ray 10/13/18 15:26 CONCLUSION: 1. No acute cardiopulmonary disease. 2. Elevation of the right hemidiaphragm. Head CT 10/13/18 15:26 CONCLUSION: 1. No acute intracranial abnormality. 2. Opacified right mastoid air cells. The patient has a history of cholesteatoma. . Carotid Doppler Study 10/14/18 00:00 CONCLUSION: Negative for hemodynamically significant stenosis. Discharge Plan Discharge Disposition Patient Disposition: Discharge Home Discharge Order Discharge Orders: Discharge Order (Routine); Ordered 10/15/18 Ordered By: Mandy Renteria Cardiology Clear for Discharge (Routine); Ordered 10/15/18 Ordered By: Nic Vyas Physicians Team Primary Care Provider: Khadar Spears Attending Provider: Mandy Renteria Other Providers: Antonino Muñiz ; Nic Vyas Rxs /Orders / Referrals /Forms Prescriptions: New loratadine 10 mg Tablet 10 mg PO DAILY Qty: 0 RF: 0 Continue warfarin [Coumadin] 10 mg Tablet 10 mg PO DAILY RF: 0 metoprolol succinate 25 mg Tablet Extended Release 24 Hr 25 mg PO BID RF: 0 amlodipine 5 mg Tablet 5 mg PO DAILY RF: 0 vitamin G82-[id number] acid 0.5-1 mg Tablet RF: 0 omega 6-zzv-qbf-fish oil [Fish Oil] 1,000 mg (120 mg-180 mg) Capsule RF: 0 magnesium oxide 400 mg magnesium Tablet 400 mg PO BID RF: 0 cholecalciferol (vitamin D3) [Vitamin D3] 5,000 unit Tablet RF: 0 Referrals: Khadar Spears MD [Primary Care Provider] - See Instructions Nic Vyas MD [Physician] - See Instructions ( Please call the physician's office to book the appointment to be seen within [[id number]].) Discharge Instructions Patient Printed Instructions: Syncope (DC) Status ED Status: Left Department Discharge Information Discharge Date/Time: 10/15/18 13:23
== END 2018-10-15 13:23 | disposition home or self-care (01) ==
LOC: NEPE 12:58 → NEDA 19:46 → INTOOBSV 19:46 → NEPGCP 22:43
PROVIDERS: ADMIT Internal Medicine; ATTEND Internal Medicine